=== PATIENT | female | born 1945 | race Caucasian/White ===

== ENCOUNTER → 2020-12-18 | Outpatient (CLI) | payer MEDICARE ==
[~2020-12-18] MED LIST: ALPRAZOLAM0.5 MG PO; CYMBALTA60 MG PO; ESTRACE1 MG PO; K-DUR TAB 10 M10 MEQ PO; NEXIUM40 MG PO; NORCO 5-325 TA1 EACH PO; TRIBENZOR 40-51 EAC1 PO
== END ==
LOC: CT 13:53
DX: I71.2 Thoracic aortic aneurysm, without rupture (principal); M25.551 Pain in right hip; R91.1 Solitary pulmonary nodule
CPT/HCPCS: 36415; 71275; 73502; 82565; Q9967

== ENCOUNTER → 2020-12-22 | Outpatient (CLI) | payer MEDICARE | LOC: KOH-I 08:45 → EMI 08:45 | DX: R42 Dizziness and giddiness (principal); H53.2 Diplopia; R51.9 Headache, unspecified | CPT/HCPCS: 70551 ==

== ENCOUNTER → 2021-02-09 | Outpatient (CLI) | payer MEDICARE | LOC: US 01-25 13:30 | DX: E04.2 Nontoxic multinodular goiter (principal) | CPT/HCPCS: 76536 ==

== ENCOUNTER → 2021-03-30 | Outpatient (CLI) | payer MEDICARE | LOC: US 09:58 | PROC: 0GBH3ZX Excision of Right Thyroid Gland Lobe, Percutaneous Approach, Diagnostic (ICD-10-PCS; principal; 2021-03-30) | DX: E04.1 Nontoxic single thyroid nodule (principal) ==

== ENCOUNTER → 2021-07-09 | Outpatient (CLI) | payer MEDICARE | LOC: KOH-I 06-21 14:30 | DX: R91.1 Solitary pulmonary nodule (principal) | CPT/HCPCS: 71250 ==

== ENCOUNTER → 2021-08-28 | Day surgery (SDC) | payer MEDICARE ==
[~2021-08-28] VITALS: Ht 162.6 cm; Wt 86.2 kg
[~2021-08-28] MED LIST changes: +AMLODIPINE BESYL5 MG PO; +FLUOXETINE HCL40 MG PO; +FUROSEMIDE20 MG PO; +HYDROCHLOROTH12.5 MG PO; +HYDROCODON-ACE1 EAC4 PO; +HYDROXYZINE HCL25 MG PO; +NITROSTAT 0.40.4 MG SL; +ROPINIROLE HCL1 MG PO; +TRULANCE3 MG PO
== END | disposition home or self-care (01) ==
LOC: OR 07:20
PROVIDERS: Internal Medicine Gastroenterology
PROC: 0DB78ZX Excision of Stomach, Pylorus, Via Natural or Artificial Opening Endoscopic, Diagnostic (ICD-10-PCS; 2021-08-28)
PROC: 0DB68ZX Excision of Stomach, Via Natural or Artificial Opening Endoscopic, Diagnostic (ICD-10-PCS; principal; 2021-08-28 10:10)
DX: K29.50 Unspecified chronic gastritis without bleeding (principal); K31.89 Other diseases of stomach and duodenum; K31.819 Angiodysplasia of stomach and duodenum without bleeding; K44.9 Diaphragmatic hernia without obstruction or gangrene; K21.9 Gastro-esophageal reflux disease without esophagitis; I25.10 Atherosclerotic heart disease of native coronary artery without angina pectoris; K43.9 Ventral hernia without obstruction or gangrene; I10 Essential (primary) hypertension; I49.9 Cardiac arrhythmia, unspecified; M19.90 Unspecified osteoarthritis, unspecified site; G89.29 Other chronic pain; M54.9 Dorsalgia, unspecified; M79.7 Fibromyalgia; E11.9 Type 2 diabetes mellitus without complications; E55.9 Vitamin D deficiency, unspecified; R32 Unspecified urinary incontinence; E66.9 Obesity, unspecified; Z20.822 Contact with and (suspected) exposure to COVID-19; Z79.899 Other long term (current) drug therapy
CPT/HCPCS: J2704; J7040